=== PATIENT | female | born 1995 | race Caucasian/White ===

== ENCOUNTER 2023-06-21 08:55 | Emergency (ER) | payer BC ==
[2023-06-21 10:08] VITALS: RESP 20
[2023-06-21 10:08] LABS: ALT 35 U/L (4-34); AST 27 U/L (14-36); African American GFR (CKD) >90 (>60 ml/min/1.73 sqM); Albumin 4.9 g/dL (3.5-5.0); Alkaline Phosphatase 37 U/L (38-126); Anion Gap 13 mmol/L; Blood Urea Nitrogen 7 mg/dL (7-17); Calcium 9.7 mg/dL (8.4-10.2); Carbon Dioxide 21 mmol/L (22-30); Chloride 103 mmol/L (98-107); Glucose 80 mg/dL (74-99); Non-African American GFR(CKD) >90 (>60 ml/min/1.73 sqM); Potassium 3.7 mmol/L (3.5-5.1); Sodium 137 mmol/L (137-145); Total Bilirubin 0.6 mg/dL (0.2-1.3); Total Protein 7.9 g/dL (6.3-8.2)
[2023-06-21 10:09] LABS: Basophils # (A) 0.1 k/uL (0-0.2); Basophils % (A) 1 %; Eosinophils # (A) 0.1 k/uL (0-0.7); Eosinophils % (A) 1 %; HCT 40.8 % (34.0-46.0); Lymphocytes # (A) 1.7 k/uL (1.0-4.8); Lymphocytes % (A) 22 %; MCH 30.5 pg (25.0-35.0); MCHC 34.3 g/dL (31.0-37.0); Mean Platelet Volume 8.6; Monocytes # (A) 0.4 k/uL (0-1.0); Monocytes % (A) 4 %; Neutrophils # (A) 5.6 k/uL (1.3-7.7); Neutrophils % (A) 71 %; Platelet Count 199 k/uL (150-450); RBC 4.59 m/uL (3.80-5.40); RDW 12.9 % (11.5-15.5); WBC 7.9 k/uL (3.8-10.6)
--- NOTE | 2023-06-21 10:57 | US ---
EXAMINATION TYPE: Transabdominal DATE OF EXAM: 06/21/2023 10:39 AM COMPARISON: NONE CLINICAL INDICATION: Female, 28 years old with history of bleeding; Heavy bleeding since this morning without cramping or pain. ; Hx C-sect EXAM PERFORMED: Transabdominal (TA) EXAM MEASUREMENTS: GESTATIONAL AGE / DATING Physician Established: (11 weeks/4 days) EDC: 01/06/2024 Dates by LMP: (11 weeks/1 days) EDC: 01/09/2024 Dates by First Scan: (7 weeks/0 days) EDC: 01/09/2024 Dates by Current Scan for: ( weeks/ days) EDC: MATERNAL ANATOMY Uterus: 12.5 x 8.8 x 9.9 cm Right Ovary: 3.3 x 1.9 x 3.0 cm Left Ovary: 3.2 x 1.2 x 2.3 cm Post CDS / Adnexa: WNL Presence of free fluid: NO Presence of corpus luteal cyst: NO Presence of subchorionic bleed: YES = 8.2 x 4.2 x 6.1 cm GESTATION / SURVEY CRL: 5.6 (12 weeks/1 days) MSD: NA ( weeks/ days) Yolk Sac (normal less than 6mm): 0.9 cm Heart Rate: 166 bpm Rhythm: Normal IUP: Viable IUP Nuchal Translucency 10-14wks (normal less than 3mm): 0.14 Age Appropriate Anatomy Cord Insertion: Too early to visualize Limbs: Too early to visualize Calvarium: Too early to visualize Date of LMP: unknown Beta HcG (if available): Not taken IMPRESSION: 1. Single live intrauterine gestation with ultrasound age 12 weeks 1 day. 2. Subchorionic hemorrhage along the margin of the placenta attention on short-term follow-up.
--- NOTE | 2023-06-21 11:23 | ED ---
Female Urogenital HPI - General Chief complaint: Vaginal Bleeding Stated complaint: Vaginal Bleeding, 11 wks Time Seen by Provider: 06/21/23 09:01 Source: patient, RN notes reviewed Mode of arrival: ambulatory Limitations: no limitations - History of Present Illness Initial comments: 28-year-old female sent emergency Department with chief complaint of vaginal bleeding in early . She states she is proximal mental weeks along she is A0 states that she has had some brown spotting but states she started having a large amount of free thin bleeding. Patient states that she has no pain. Patient denies any trauma states she is a positive blood type. Patient has an appointment with [facility] coming up. She has had a prior ultrasound showing intrauterine - Related Data Allergies Allergy/AdvReac Type Severity Reaction Status Date / Time No Known Allergies Allergy Verified 06/21/23 09:07 Review of Systems ROS Statement: Those systems with pertinent positive or pertinent negative responses have been documented in the HPI. ROS Other: All systems not noted in ROS Statement are negative. Past Medical History Past Medical History: No Reported History History of Any Multi-Drug Resistant Organisms: None Reported Past Surgical History: No Surgical Hx Reported Past Psychological History: No Psychological Hx Reported Smoking Status: Never smoker Past Alcohol Use History: None Reported Past Drug Use History: None Reported General Exam Limitations: no limitations General appearance: alert, in no apparent distress Head exam: Present: atraumatic, normocephalic, normal inspection Neck exam: Present: normal inspection. Absent: tenderness, meningismus, lymphadenopathy Respiratory exam: Present: normal lung sounds bilaterally. Absent: respiratory distress, wheezes, rales, rhonchi, stridor Cardiovascular Exam: Present: regular rate, normal rhythm, normal heart sounds. Absent: systolic murmur, diastolic murmur, rubs, gallop, clicks GI/Abdominal exam: Present: soft, normal bowel sounds. Absent: distended, tenderness, guarding, rebound, rigid Course Vital Signs 06/21/23 06/21/23 06/21/23 09:04 09:44 11:40 Temperature 98 F 99.0 F Pulse Rate 108 H 93 74 Respiratory 18 20 20 Rate Blood Pressure 136/87 118/69 112/64 O2 Sat by Pulse 98 99 99 Oximetry Medical Decision Making - Medical Decision Making Was pt. sent in by a medical professional or institution (, PA, SCRATCH FINISHER, urgent care, hospital, or penitentiary...) When possible be specific @ -No Did you speak to anyone other than the patient for history (EMS, parent, family, police, friend...)? What history was obtained from this source @ -No Did you review nursing and triage notes (agree or disagree)? Why? @ -I reviewed and agree with nursing and triage notes Were old charts reviewed (outside hosp., previous admission, EMS record, old EKG, old radiological studies, urgent care reports/EKG's, penitentiary records)? Report findings @ -No old charts were reviewed Differential Diagnosis (chest pain, altered mental status, abdominal pain women, abdominal pain men, vaginal bleeding, weakness, fever, dyspnea, syncope, headache, dizziness, GI bleed, back pain, seizure, CVA, palpatations, mental health, musculoskeletal)? @ -nDifferential Vaginal Bleeding: Spontaneous , threatened , molar , ectopic , bloody show, incompetent cervix, abruptioplacenta, placenta previa, uterine rupture, dysfunctional uterine bleeding, hemorrhage, uterine fibroids, this is not meant to be an all-inclusive list.able EKG interpreted by me (3pts min.). @ -None X-rays interpreted by me (1pt min.). @ -None done CT interpreted by me (1pt min.). @ -None done U/S interpreted by me (1pt. min.). @ -Ultrasound shows intrauterine with large subchorionic hemorrhage What testing was considered but not performed or refused? (CT, X-rays, U/S, labs)? Why? @ -None What meds were considered but not given or refused? Why? @ -None Did you discuss the management of the patient with other professionals (professionals i.e. , PA, SCRATCH FINISHER, lab, RT, psych nurse, social professionals, condenser winder, teacher, maritime officer, outpatient case manager)? Give summary @ -No Was smoking cessation discussed for >3mins.? @ -No Was critical care preformed (if so, how long)? @ -No Were there social determinants of health that impacted care today? How? (Homelessness, low income, unemployed, alcoholism, drug addiction, transportation, low edu. Level, literacy, decrease access to med. care, prison, rehab)? @ -No Was there de-escalation of care discussed even if they declined (Discuss DNR or withdrawal of care, Hospice)? DNR status @ -No What co-morbidities impacted this encounter? (DM, HTN, Smoking, COPD, CAD, Cancer, CVA, ARF, Chemo, Hep., AIDS, mental health diagnosis, sleep apnea, morbid obesity)? @ -None Was patient admitted / discharged? Hospital course, mention meds given and r oute, prescriptions, significant lab abnormalities, going to OR and other pertinent info. @ -Discharge patient ultrasound shows viable IUP patient does have a large subchorionic hemorrhage causing the bleeding. Patient will follow-up with [facility] at scheduled appointment patient is a positive blood type does not require RhoGAM. Undiagnosed new problem with uncertain prognosis? @ -No Drug Therapy requiring intensive monitoring for toxicity (Heparin, Nitro, Insulin, Cardizem)? @ -No Were any procedures done? @ -No Diagnosis/symptom? @ -Threatened miscarriage, subchronic hemorrhage Acute, or Chronic, or Acute on Chronic? @ -Acute Uncomplicated (without systemic symptoms) or Complicated (systemic symptoms)? @ -Uncomplicated Side effects of treatment? @ -No Exacerbation, Progression, or Severe Exacerbation? @ -No Poses a threat to life or bodily function? How? (Chest pain, USA, VT, pneumonia, PE, COPD, DKA, ARF, appy, cholecystitis, CVA, Diverticulitis, Homicidal, Suicidal, threat to staff... and all critical care pts) @ -No - Lab Data Result diagrams: 06/21/23 09:35 06/21/23 09:35 Lab Results 06/21/23 06/21/23 06/21/23 Range/Units 09:35 09:35 09:35 WBC 7.9 (3.8-10.6) k/uL RBC 4.59 (3.80-5.40) m/uL Hgb 14.0 (11.4-16.0) gm/dL Hct 40.8 (34.0-46.0) % MCV 89.0 (80.0-100.0) fL MCH 30.5 (25.0-35.0) pg MCHC 34.3 (31.0-37.0) g/dL RDW 12.9 (11.5-15.5) % Plt Count 199 (150-450) k/uL MPV 8.6 Neutrophils % 71 % Lymphocytes % 22 % Monocytes % 4 % Eosinophils % 1 % Basophils % 1 % Neutrophils # 5.6 (1.3-7.7) k/uL Lymphocytes # 1.7 (1.0-4.8) k/uL Monocytes # 0.4 (0-1.0) k/uL Eosinophils # 0.1 (0-0.7) k/uL Basophils # 0.1 (0-0.2) k/uL Sodium 137 (137-145) mmol/L Potassium 3.7 (3.5-5.1) mmol/L Chloride 103 (98-107) mmol/L Carbon Dioxide 21 L (22-30) mmol/L Anion Gap 13 mmol/L BUN 7 (7-17) mg/dL Creatinine 0.44 L (0.52-1.04) mg/dL Est GFR (CKD-EPI)AfAm >90 (>60 ml/min/1.73 sqM) Est GFR (CKD-EPI)NonAf >90 (>60 ml/min/1.73 sqM) Glucose 80 (74-99) mg/dL Calcium 9.7 (8.4-10.2) mg/dL Total Bilirubin 0.6 (0.2-1.3) mg/dL AST 27 (14-36) U/L ALT 35 H (4-34) U/L Alkaline Phosphatase 37 L (38-126) U/L Total Protein 7.9 (6.3-8.2) g/dL Albumin 4.9 (3.5-5.0) g/dL Blood Type A Positive Blood Type Recheck No Previous Record Bld Type Recheck Status ABR ONLY Disposition Clinical Impression: Threatened miscarriage, Subchorionic bleed Disposition: HOME SELF-CARE Condition: Stable Instructions (If sedation given, give patient instructions): Subchorionic Hemorrhage (ED) Additional Instructions: Please return to the Emergency Department if symptoms worsen or any other concerns. Is patient prescribed a controlled substance at d/c from ED?: No Referrals: None,Stated [Primary Care Provider] - 1-2 days Time of Disposition: 11:23
[2023-06-21 11:54] VITALS: BP 112/64; PULSE 74; TEMP 99
== END 2023-06-21 11:41 | disposition home or self-care (01) ==
LOC: EC 08:55
DX: O20.0 Threatened abortion (principal); Z3A.12 12 weeks gestation of pregnancy
CPT/HCPCS: 36415; 76801; 80053; 85025; 86900; 86901; 99284

== ENCOUNTER → 2023-07-11 | Outpatient (CLI) | payer BC ==
[2023-07-11 18:34] LABS: Basophils # (A) 0.06 X 10*3/uL (0.00-0.10); Basophils % (A) 0.7 %; Eosinophils # (A) 0.07 X 10*3/uL (0.04-0.35); Eosinophils % (A) 0.9 %; HCT 37.7 % (37.2-46.3); HGB 12.4 g/dL (12.0-15.0); Lymphocytes # (A) 1.74 X 10*3/uL (0.90-5.00); Lymphocytes % (A) 21.3 %; MCHC 32.9 g/dL (32.0-37.0); MCV 91.1 FL (80.0-97.0); Mean Platelet Volume 11.8 FL (9.5-12.2); Monocytes # (A) 0.37 X 10*3/uL (0.20-1.00); Monocytes % (A) 4.5 %; NRBC Per 100 WBC 0 X 10*3/uL (0.00-0.01); Neutrophils # (A) 5.91 X 10*3/uL (1.80-7.70); Neutrophils % (A) 72.2 %; Platelet Count 205 X 10*3/uL (140-440); RBC 4.14 X 10*6/uL (4.10-5.20); WBC 8.18 X 10*3/uL (4.50-10.00)
== END | disposition home or self-care (01) ==
LOC: LABPAT 12:17
PROVIDERS: ATTEND Obstetrics & Gynecology
DX: Z01.812 Encounter for preprocedural laboratory examination (principal); O02.1 Missed abortion; Z3A.00 Weeks of gestation of pregnancy not specified
CPT/HCPCS: 36415; 85025; 86850; 86900; 86901

== ENCOUNTER 2023-07-12 08:22 | Day surgery (SDC) | payer BC ==
[~2023-07-12 08:22] MED LIST: Pre Op ABX Message 1 EACH MISC MISCELLANE ONE
[2023-07-12] MEDS ORDERED: ONDANSETRON 4 MG/2 ML VIAL IVP ONE ×2 (08:43→09:17)
[2023-07-12] MEDS ORDERED: FAMOTIDINE 20 MG/2 ML VIAL IV PRN (08:43)
[2023-07-12] MEDS ORDERED: DEXAMETHASONE SOD PHOSPHATE 4 MG/ML 1 ML VIAL IV ONE (08:43)
[2023-07-12] MEDS ORDERED: HYDROmorphone 0.5 MG/0.5 ML SYRINGE IVP PRN (08:43)
[2023-07-12] MEDS: LACTATED RINGERS 1,000 ML IV SCH ×2 (09:01→11:01)
[2023-07-12 09:07] VITALS: TEMP 98
[2023-07-12] MEDS ORDERED: DEXAMETHASONE SOD PHOSPHATE 4 MG/ML 1 ML VIAL IVP ONE (09:17)
[2023-07-12] MEDS ORDERED: PROPOFOL 10 MG/ML 20 ML VIAL IV ONE (09:51)
[2023-07-12] MEDS ORDERED: fentaNYL (PF) 50 MCG/ML 2 ML AMP ONE (09:51)
[2023-07-12] MEDS ORDERED: LIDOCAINE 1% INJ 10MG/ML (20 ML MDV) ONE (09:51)
[2023-07-12] MEDS ORDERED: MIDAZOLAM 2 MG/2 ML VIAL ONE (09:51)
[2023-07-12] MEDS ORDERED: METHYLERGONOVINE 0.2 MG/ML 1 ML AMP ONE (09:51)
[2023-07-12] MEDS ORDERED: PHENYLEPHRINE 10 MG/ML VIAL ONE (09:51)
[2023-07-12] MEDS ORDERED: IBUPROFEN 600 MG TAB PO PRN (10:39)
[2023-07-12] MEDS ORDERED: METOCLOPRAMIDE 5 MG/ML 2 ML VIAL IVP PRN (10:39)
[2023-07-12] MEDS ORDERED: diphenhydrAMINE 50 MG/ML 1 ML VIAL IVP PRN (10:39)
[2023-07-12] MEDS ORDERED: SIMETHICONE 80 MG CHEWABLE PO PRN (10:39)
[2023-07-12] MEDS ORDERED: KETOROLAC 15 MG/ML 1 ML VIAL IVP PRN (10:39)
[2023-07-12] MEDS ORDERED: Acetaminophen-Codeine 300-30mg TAB PO PRN ×2 (10:39)
[2023-07-12] MEDS ORDERED: ONDANSETRON 4 MG/2 ML VIAL IVP PRN (10:39)
[2023-07-12] MEDS ORDERED: LACTATED RINGERS 1,000 ML IV SCH (10:45)
--- NOTE | 2023-07-12 10:47 | P.OP ---
Date of Procedure: 07/12/23 Preoperative Diagnosis: #1. 13+ week missed #2. Large subchorionic hemorrhage Postoperative Diagnosis: Same Procedure(s) Performed: #1. Dilation and evacuation with ultrasound guidance Anesthesia: other (Gen. by LMA) Surgeon: Uriel Szymanski Estimated Blood Loss (ml): 700 IV fluids (ml): 400 Urine output (ml): 20 Pathology: other (Intrauterine contents/products of conception) Condition: stable Disposition: PACU Operative Findings: Preoperative pelvic examination demonstrated a 10-12 week anteverted mobile normal shaped uterus with normal adnexa bilaterally. Intraoperatively, the uterus sounded to 13-14 cm. A #12 curved aspiration curet was utilized tissue was seen passing through the tubing on multiple passes. With sharp curettage, the typical gritty texture was encountered throughout and there was no tissue returned. For the last several passes, ultrasound guidance was utilized to follow the aspiration curet from the fundus circumferentially towards the cervix. While there did appear to still be some fluid likely blood in the in vitro cavity, that did not appear to be any solid tissue. A total of 3+ baskets of tissue were removed from the uterus and sent to pathology. Description of Procedure: The patient was prepped and draped in usual fashion after general anesthesia was administered by the anesthesiologist. A weighted speculum was placed in the bladder draining approximately 20 mL of clear jossie urine. The anterior lip of the cervix was grasped with a single-tooth tenaculum. Serial dilation was carried out to the largest dilator available. A #12 curved aspiration curet was placed initially with some difficulty but then with ease after the first placement. It was placed to the fundus of the uterus and suction applied. After adequate suction had built, thorough and circumferential curettage was carried out from the fundus to the cervix with tissue clearly seen passing through the tubing on the first 3-5 passes. What appeared to be old clotted bl ood was also seen during one of the passes consistent with the previous subchorionic hematoma. Some of the tissue with removal of the suction curet was noted to be in the cervix and was teased out using a ring forceps and added to the specimen. After approximately 5 passes with the aspiration curet and no obvious tissue further being returned, sharp curettage was carried out and a thorough and circumferential fashion into the vagina where any tissue was then suctioned up through no tissue was noticed in the typical gritty texture was encountered throughout. Ultrasound was then applied to the abdomen and it appeared there may still be some tissue remaining inside of the uterus. Another pass was made with the aspiration curet at which time no significant tissue was seen. The ultrasound was then applied while the suction was in the endometrial cavity and we actively followed to the aspiration curet from the fundus circumferentially towards the cervix with the uterus being significantly decompressed under suction and there was no evidence of any remaining tissue. All instrumentation was then removed. The patient was still having some ongoing bleeding from the cervix and Methergine was given intramuscularly by anesthesia. 2 points of bleeding at the tenaculum sites were made hemostatic with the Bovie. Observation was carried out and there was no significant amount of ongoing bleeding. The uterus was appreciably smaller both using the suction curet and on bimanual examination from before the procedure to the end of the procedure. Estimated blood loss for the case was approximately 700 mL. There were no complications. All sponge, instrument, and needle counts were correct. The patient tolerated the procedure well and proceeded to the recovery room in stable condition.
[2023-07-12 11:57] VITALS: RESP 16
--- NOTE | 2023-07-12 12:09 | US ---
EXAMINATION TYPE: US guide intraoperative ultrasound guidance Provided for dilation curettage. 9 pict ures were submitted.
[2023-07-12 12:22] VITALS: BP 107/70; PULSE 82
[2023-07-13] MEDS ORDERED: ACETAMINOPHEN TAB 325 MG TAB PO PRN (10:40)
== END 2023-07-12 12:38 | disposition home or self-care (01) ==
LOC: OR 08:22
PROVIDERS: ATTEND Obstetrics & Gynecology
DX: O02.1 Missed abortion (principal); J45.909 Unspecified asthma, uncomplicated; Z79.899 Other long term (current) drug therapy; Z88.1 Allergy status to other antibiotic agents; Z82.49 Family history of ischemic heart disease and other diseases of the circulatory system; Z98.890 Other specified postprocedural states
CPT/HCPCS: 59821; J2250; J1100; J2210; J2405; J2001; J3010; J3490; J2704; J2371; 88305

== ENCOUNTER → 2023-08-12 | Outpatient (CLI) | payer BC | END | disposition home or self-care (01) | LOC: LABWHC1 15:56 | PROVIDERS: ATTEND Obstetrics & Gynecology | DX: O03.9 Complete or unspecified spontaneous abortion without complication (principal); Z98.890 Other specified postprocedural states | CPT/HCPCS: 36415; 84702 ==